=== PATIENT | female | born 1960 | race Two or more races ===

== ENCOUNTER 2021-08-16 13:38 | Inpatient (IN) | payer BC, OTHER ==
[~2021-08-16] VITALS: Ht 177.8 cm; Wt 125.6 kg
[2021-08-16 13:32] VITALS: BP 154/73
[~2021-08-16 13:38] MED LIST: ACETAMINOPHEN 650MG SUPP PR PRN; ACETAMINOPHEN 650MG/20.3ML UDC GT PRN; DOCUSATE SODIUM 100MG CAPSULE PO PRN; GUAIFENESIN 200MG/10ML SUGAR FREE UDC PO PRN; IPRATROPIUM/ALBUTEROL 0.5-3(2.5)MG/3ML NEB NEB PRN; MAGNESIUM/ALUMINUM HYDROXIDE/SIMETHICONE 30ML UDC PO PRN; ONDANSETRON HCL 4MG/2ML INJ IV PRN
[2021-08-16 15:13] VITALS: BP 148/70
[2021-08-16] MEDS ORDERED: NALOXONE HCL 0.4MG/ML VIAL IV PRN (15:30)
[2021-08-16 15:32] LABS: BASOPHILS % 0.2 % (0.0-2.0); HEMATOCRIT. 26.9 % (36.0-48.0); HEMOGLOBIN. 8.7 g/dL (12.0-16.0); LYMPHOCYTES % 7.1 % (20.0-50.0); MEAN CORPUSCULAR VOLUME 96.3 fL (81.0-99.0); MEAN PLATELET VOLUME 7.9 fl (7.4-10.4); MONOCYTES % 8.4 % (2.0-8.0); NEUTROPHILS % 83.3 % (40.0-76.0); PLATELET 356 x1000/uL (130-400); RED CELL DISTRIBUTION WIDTH 19.1 % (11.6-14.6)
[2021-08-16 15:43] LABS: CHLORIDE 104 mEq/L (98-107)
[2021-08-16 15:49] LABS: PHOSPHORUS 2.6 mg/dL (2.5-4.9)
[2021-08-16 15:50] LABS: LDL CHOLESTEROL 98 mg/dL (5-100)
[2021-08-16 15:51] LABS: HDL CHOLESTEROL 35 mg/dL (40-59)
[2021-08-16 15:53] LABS: CREATINE KINASE 13 IU/L (26-192)
[2021-08-16 16:00] VITALS: BP 106/64
[2021-08-16] MEDS: MEROPENEM 1,000 MG in SODIUM CHLORIDE 0.9% 100 ML IV SCH (16:06)
[2021-08-16 17:34] VITALS: BP 116/70
[2021-08-16 20:00] VITALS: BP 119/78
[2021-08-16] MEDS: IPRATROPIUM/ALBUTEROL 0.5-3(2.5)MG/3ML NEB HHN SCH ×2 (20:13→23:57)
[2021-08-16] MEDS: BLOOD SUGAR DIAGNOSTIC STRIP TEST SCH (20:48)
[2021-08-16] MEDS: AMLODIPINE 2.5MG TABLET PO SCH (20:48)
[2021-08-16 22:00] VITALS: BP 128/69
[2021-08-16 23:17] LABS: CLARITY URINE CLOUDY (CLEAR); COLOR URINE DARK YELLOW (YELLOW); KETONES URINE NEGATIVE (NEGATIVE); LEUKOCYTE ESTERASE URINE 1+ (NEGATIVE); NITRITE URINE NEGATIVE (NEGATIVE); OCCULT BLOOD URINE NEGATIVE (NEGATIVE); PH URINE 5.5 (4.5-8.0); PROTEIN URINE 1+ (NEGATIVE); SPECIFIC GRAVITY URINE 1.024 (1.005-1.030); UROBILINOGEN URINE 0.2 E.U./dL (0.2-1.0)
[2021-08-17] VITALS (12 sets, daily range): BP systolic 112–146; BP diastolic 56–88
[2021-08-17] MEDS: MEROPENEM 1,000 MG in SODIUM CHLORIDE 0.9% 100 ML IV SCH ×4 (00:39→23:30)
[2021-08-17] MEDS: IPRATROPIUM/ALBUTEROL 0.5-3(2.5)MG/3ML NEB HHN SCH ×4 (02:59→20:25)
[2021-08-17 08:25] LABS: BASOPHILS % 0.3 % (0.0-2.0); EOSINOPHILS % 1.3 % (0.0-5.0); HEMATOCRIT. 24.7 % (36.0-48.0); HEMOGLOBIN. 8.4 g/dL (12.0-16.0); LYMPHOCYTES % 7.7 % (20.0-50.0); MEAN CORPUSCULAR HEMOGLOBIN 32.9 pg (28.0-32.0); MEAN CORPUSCULAR VOLUME 96.7 fL (81.0-99.0); MEAN PLATELET VOLUME 8.1 fl (7.4-10.4); MONOCYTES % 9.3 % (2.0-8.0); NEUTROPHILS % 81.4 % (40.0-76.0); PLATELET 295 x1000/uL (130-400); RED BLOOD CELL COUNT 2.56 mill/uL (4.2-5.4); RED CELL DISTRIBUTION WIDTH 19.4 % (11.6-14.6)
[2021-08-17 08:27] LABS: CHLORIDE 107 mEq/L (98-107)
[2021-08-17] MEDS: AMLODIPINE 2.5MG TABLET PO SCH ×2 (08:54→20:56)
[2021-08-17] MEDS: BLOOD SUGAR DIAGNOSTIC STRIP TEST SCH ×2 (08:54→20:56)
[2021-08-17] MEDS ORDERED: LIDOCAINE HCL 1% 20ML VIAL (Pyxis) INJ ONE (09:11)
[2021-08-17] MEDS: LORAZEPAM 2MG/ML CPJ IV PRN (16:01)
[2021-08-17] MEDS ORDERED: IOHEXOL-300 100 ML BOTTLE ONE ×2 (17:00→20:39)
[2021-08-18] VITALS (12 sets, daily range): BP systolic 110–179; BP diastolic 61–77
[2021-08-18] MEDS: IPRATROPIUM/ALBUTEROL 0.5-3(2.5)MG/3ML NEB HHN SCH ×6 (00:31→20:44)
[2021-08-18] MEDS: CLONIDINE 0.1MG TABLET PO PRN ×2 (01:28→12:47)
[2021-08-18 06:33] LABS: BASOPHILS % 0.3 % (0.0-2.0); EOSINOPHILS % 1.6 % (0.0-5.0); HEMATOCRIT. 28.6 % (36.0-48.0); HEMOGLOBIN. 9.2 g/dL (12.0-16.0); MEAN CORPUSCULAR HEMOGLOBIN 31.4 pg (28.0-32.0); MEAN CORPUSCULAR VOLUME 97.4 fL (81.0-99.0); MEAN PLATELET VOLUME 8.2 fl (7.4-10.4); MONOCYTES % 12.7 % (2.0-8.0); NEUTROPHILS % 77.4 % (40.0-76.0); PLATELET 312 x1000/uL (130-400); RED BLOOD CELL COUNT 2.94 mill/uL (4.2-5.4); RED CELL DISTRIBUTION WIDTH 18.7 % (11.6-14.6)
[2021-08-18 06:37] LABS: CHLORIDE 109 mEq/L (98-107)
[2021-08-18 08:12] LABS: *CREATININE RANDOM URINE 72.7 mg/dL (Not Estab.); MICROALBUMIN RANDOM URINE 30.1 ug/mL (Not Estab.)
[2021-08-18] MEDS: MEROPENEM 1,000 MG in SODIUM CHLORIDE 0.9% 100 ML IV SCH ×3 (08:25→23:30)
[2021-08-18 08:34] LABS: BG BASE EXCESS 8.3 mmol/L (-2.0-2.0); BG CARBOXYHEMOGLOBIN 0.7 % (0.5-1.5); BG DEOXYHEMOGLOBIN 5.1 % (0.0-5.0); BG FRACTION INSPIRED OXYGEN 30; BG HCO3 ACT 32.2 mmol/L (22.0-26.0); BG METHEMOGLOBIN 0.4 % (0.0-1.5); BG OXYGEN SATURATION 94.8 % (92.0-98.5); BG OXYHEMOGLOBIN 93.8 % (94.0-97.0); BG PCO2 42.1 mmHg (35.0-45.0); BG PH 7.501 (7.350-7.450); BG PO2 76.2 mmHg (75.0-100.0); BG SAMPLE SITE RIGHT RADIAL; BG TOTAL HEMOGLOBIN 8.8 g/dL (12.0-18.0); BG VENT MODE VENT - AC
[2021-08-18] MEDS: BLOOD SUGAR DIAGNOSTIC STRIP TEST SCH ×2 (09:06→20:54)
[2021-08-18] MEDS: AMLODIPINE 2.5MG TABLET PO SCH ×2 (09:06→20:55)
[2021-08-18] MEDS: MORPHINE SULFATE 2 MG/ML CPJ (NOT FOR IM USE) IV PRN (10:33)
[2021-08-18] MEDS: CINACALCET HCL 30MG TABLET PO SCH (11:36)
[2021-08-18 12:49] LABS: BG BASE EXCESS 8.5 mmol/L (-2.0-2.0); BG CARBOXYHEMOGLOBIN 0.7 % (0.5-1.5); BG FRACTION INSPIRED OXYGEN 30; BG HCO3 ACT 32.6 mmol/L (22.0-26.0); BG METHEMOGLOBIN 0.4 % (0.0-1.5); BG OXYHEMOGLOBIN 95.9 % (94.0-97.0); BG PCO2 43.8 mmHg (35.0-45.0); BG PO2 92.1 mmHg (75.0-100.0); BG SAMPLE SITE RIGHT RADIAL; BG TOTAL HEMOGLOBIN 8.4 g/dL (12.0-18.0); BG VENT MODE VENT - AC
[2021-08-19] VITALS (13 sets, daily range): BP systolic 94–150; BP diastolic 52–91
[2021-08-19] MEDS: IPRATROPIUM/ALBUTEROL 0.5-3(2.5)MG/3ML NEB HHN SCH ×6 (00:14→20:37)
[2021-08-19 05:34] LABS: BASOPHILS % 0.4 % (0.0-2.0); EOSINOPHILS % 2.3 % (0.0-5.0); HEMATOCRIT. 25.4 % (36.0-48.0); HEMOGLOBIN. 8.1 g/dL (12.0-16.0); LYMPHOCYTES % 9.2 % (20.0-50.0); MEAN CORPUSCULAR HEMOGLOBIN 31.1 pg (28.0-32.0); MEAN CORPUSCULAR VOLUME 97.1 fL (81.0-99.0); MEAN PLATELET VOLUME 7.9 fl (7.4-10.4); MONOCYTES % 9.8 % (2.0-8.0); NEUTROPHILS % 78.3 % (40.0-76.0); PLATELET 313 x1000/uL (130-400); RED BLOOD CELL COUNT 2.62 mill/uL (4.2-5.4); RED CELL DISTRIBUTION WIDTH 18.5 % (11.6-14.6)
[2021-08-19 05:44] LABS: CHLORIDE 112 mEq/L (98-107)
[2021-08-19] MEDS: CINACALCET HCL 30MG TABLET PO SCH (08:36)
[2021-08-19] MEDS: AMLODIPINE 2.5MG TABLET PO SCH (08:36)
[2021-08-19] MEDS: MEROPENEM 1,000 MG in SODIUM CHLORIDE 0.9% 100 ML IV SCH ×3 (08:36→23:36)
[2021-08-19] MEDS: BLOOD SUGAR DIAGNOSTIC STRIP TEST SCH ×2 (09:00→20:38)
[2021-08-19] MEDS ORDERED: KCL 20MEQ/100ML PREMIX 100 ML IV SCH (09:00)
[2021-08-19] MEDS ORDERED: POTASSIUM CHLORIDE 20MEQ/PACKET PO SCH (09:30)
[2021-08-19 09:59] LABS: PARTIAL THROMBOPLASTIN TIME 21.9 sec (23.4-31.0); PROTHROMBIN TIME 11.1 sec (9.6-11.0)
[2021-08-19] MEDS ORDERED: LIDOCAINE HCL 1% 20ML VIAL (Pyxis) INJ ONE (10:49)
[2021-08-19] MEDS: MORPHINE SULFATE 2 MG/ML CPJ (NOT FOR IM USE) IV PRN (10:57)
[2021-08-19] MEDS: LORAZEPAM 2MG/ML CPJ IV PRN (14:40)
[2021-08-19] MEDS: METOPROLOL TARTRATE 25MG TABLET PO SCH ×2 (16:22→21:02)
[2021-08-20] VITALS (18 sets, daily range): BP systolic 117–169; BP diastolic 69–96
[2021-08-20] MEDS: IPRATROPIUM/ALBUTEROL 0.5-3(2.5)MG/3ML NEB HHN SCH ×6 (00:16→20:44)
[2021-08-20 06:10] LABS: CHLORIDE 111 mEq/L (98-107)
[2021-08-20 06:19] LABS: PHOSPHORUS 3.2 mg/dL (2.5-4.9)
[2021-08-20] MEDS: MEROPENEM 1,000 MG in SODIUM CHLORIDE 0.9% 100 ML IV SCH ×3 (08:07→23:42)
[2021-08-20] MEDS: CINACALCET HCL 30MG TABLET PO SCH (08:07)
[2021-08-20] MEDS: METOPROLOL TARTRATE 25MG TABLET PO SCH ×2 (08:07→20:52)
[2021-08-20] MEDS: BLOOD SUGAR DIAGNOSTIC STRIP TEST SCH ×2 (08:08→20:52)
[2021-08-20 08:33] LABS: BASOPHILS % 0.5 % (0.0-2.0); EOSINOPHILS % 3.2 % (0.0-5.0); HEMATOCRIT. 25.9 % (36.0-48.0); HEMOGLOBIN. 8.3 g/dL (12.0-16.0); LYMPHOCYTES % 9.5 % (20.0-50.0); MEAN CORPUSCULAR VOLUME 97.2 fL (81.0-99.0); MEAN PLATELET VOLUME 7.5 fl (7.4-10.4); MONOCYTES % 9.3 % (2.0-8.0); NEUTROPHILS % 77.5 % (40.0-76.0); PLATELET 309 x1000/uL (130-400); RED BLOOD CELL COUNT 2.67 mill/uL (4.2-5.4); RED CELL DISTRIBUTION WIDTH 18.5 % (11.6-14.6)
[2021-08-20] MEDS: RISPERIDONE 0.5MG TABLET PO SCH (10:21)
[2021-08-20] MEDS: CLONIDINE 0.1MG TABLET PO PRN (10:21)
[2021-08-20] MEDS: LINEZOLID 600MG TABLET GT SCH (17:07)
[2021-08-21] VITALS (13 sets, daily range): BP systolic 117–160; BP diastolic 53–97
[2021-08-21] MEDS: IPRATROPIUM/ALBUTEROL 0.5-3(2.5)MG/3ML NEB HHN SCH ×6 (00:34→21:30)
[2021-08-21] MEDS: LORAZEPAM 2MG/ML CPJ IV PRN ×2 (02:14→10:43)
[2021-08-21 05:56] LABS: BASOPHILS % 0.5 % (0.0-2.0); HEMATOCRIT. 26.1 % (36.0-48.0); HEMOGLOBIN. 8.5 g/dL (12.0-16.0); LYMPHOCYTES % 12.1 % (20.0-50.0); MEAN CORPUSCULAR HEMOGLOBIN 31.2 pg (28.0-32.0); MEAN CORPUSCULAR VOLUME 95.9 fL (81.0-99.0); MEAN PLATELET VOLUME 7.6 fl (7.4-10.4); NEUTROPHILS % 73.4 % (40.0-76.0); PLATELET 315 x1000/uL (130-400); RED BLOOD CELL COUNT 2.72 mill/uL (4.2-5.4); RED CELL DISTRIBUTION WIDTH 18.4 % (11.6-14.6)
[2021-08-21 06:08] LABS: CHLORIDE 110 mEq/L (98-107)
[2021-08-21] MEDS ORDERED: CINACALCET HCL 60MG TABLET PO SCH (08:00)
[2021-08-21] MEDS ORDERED: ZINC SULFATE 220 MG ( 50 ) CAPSULE PO SCH (09:00)
[2021-08-21] MEDS ORDERED: ASCORBIC ACID 500 MG TABLET PO SCH (09:00)
[2021-08-21] MEDS: BLOOD SUGAR DIAGNOSTIC STRIP TEST SCH ×2 (09:45→20:56)
[2021-08-21] MEDS: MEROPENEM 1,000 MG in SODIUM CHLORIDE 0.9% 100 ML IV SCH (09:49)
[2021-08-21] MEDS ORDERED: LORAZEPAM 2MG/ML CPJ ONE (10:35)
[2021-08-21] MEDS: RISPERIDONE 0.5MG TABLET PO SCH (10:56)
[2021-08-21] MEDS: LINEZOLID 600MG TABLET GT SCH (10:57)
[2021-08-21] MEDS: METOPROLOL TARTRATE 25MG TABLET PO SCH ×2 (10:58→20:57)
[2021-08-21] MEDS ORDERED: LORAZEPAM 2MG/ML CPJ IV PRN (12:15)
[2021-08-21] MEDS ORDERED: AMPICILLIN SOD/SULBACTAM NA 3 G in SODIUM CHLORIDE 0.9% 100 ML IV SCH (16:30)
[2021-08-21] MEDS ORDERED: DILTIAZEM HCL 5MG/ML 5ML VIAL IV NR (19:45)
== END 2021-08-21 23:46 | DRG 870 ==
LOC: 5EST 13:38
PROVIDERS: ADMIT Family Medicine Adult Medicine; ATTEND Family Medicine Adult Medicine
PROC: 5A1955Z Respiratory Ventilation, Greater than 96 Consecutive Hours (ICD-10-PCS; 2021-08-16)
PROC: 02HV33Z Insertion of Infusion Device into Superior Vena Cava, Percutaneous Approach (ICD-10-PCS; principal; 2021-08-17)
PROC: B548ZZA Ultrasonography of Superior Vena Cava, Guidance (ICD-10-PCS; 2021-08-17)
PROC: 0W9F30Z Drainage of Abdominal Wall with Drainage Device, Percutaneous Approach (ICD-10-PCS; 2021-08-19)
DX: A41.9 Sepsis, unspecified organism (principal); K65.1 Peritoneal abscess; G92.8 Other toxic encephalopathy; J96.20 Acute and chronic respiratory failure, unspecified whether with hypoxia or hypercapnia; E44.0 Moderate protein-calorie malnutrition; I50.22 Chronic systolic (congestive) heart failure; E87.3 Alkalosis; I13.0 Hypertensive heart and chronic kidney disease with heart failure and stage 1 through stage 4 chronic kidney disease, or unspecified chronic kidney disease; I42.9 Cardiomyopathy, unspecified; K61.1 Rectal abscess; Z99.11 Dependence on respirator [ventilator] status; Z16.12 Extended spectrum beta lactamase (ESBL) resistance; L02.211 Cutaneous abscess of abdominal wall; N17.9 Acute kidney failure, unspecified; E11.22 Type 2 diabetes mellitus with diabetic chronic kidney disease; E66.01 Morbid (severe) obesity due to excess calories; I48.0 Paroxysmal atrial fibrillation; D64.9 Anemia, unspecified; E83.52 Hypercalcemia; I27.81 Cor pulmonale (chronic); I49.5 Sick sinus syndrome; N18.9 Chronic kidney disease, unspecified; R13.10 Dysphagia, unspecified; B96.1 Klebsiella pneumoniae [K. pneumoniae] as the cause of diseases classified elsewhere; B96.20 Unspecified Escherichia coli [E. coli] as the cause of diseases classified elsewhere; U09.9 Post COVID-19 condition, unspecified; B95.2 Enterococcus as the cause of diseases classified elsewhere; N73.9 Female pelvic inflammatory disease, unspecified; Z20.822 Contact with and (suspected) exposure to COVID-19; S30.91XA Unspecified superficial injury of lower back and pelvis, initial encounter; S81.811A Laceration without foreign body, right lower leg, initial encounter; X58.XXXA Exposure to other specified factors, initial encounter; Y93.89 Activity, other specified; Y92.89 Other specified places as the place of occurrence of the external cause; Y99.8 Other external cause status; Z86.72 Personal history of thrombophlebitis; Z93.0 Tracheostomy status; Z93.1 Gastrostomy status; Z87.01 Personal history of pneumonia (recurrent); Z90.49 Acquired absence of other specified parts of digestive tract; Z68.39 Body mass index [BMI] 39.0-39.9, adult
CPT/HCPCS: 10030; 36415; 36600; 71045; 74177; 76937; 80048; 80053; 80061; 81003; 82043; 82330; 82375; 82550; 82570; 82805; 82962; 83036; 83605; 83735; 83880; 84100; 84134; 84145; 84443; 84484; 84550; 84560; 85025; 87070; 87075; 87077; 87186; 87426; 93005; 93306; 94002; 94003; 94640; A6261; C1725; C1729; C1760; J0295; J2060; J2185; J2270; J2405; J3480; J3490; J7050; Q9967

== ENCOUNTER 2021-09-10 12:52 | Inpatient (IN) | payer BC, OTHER ==
[~2021-09-10] VITALS: Ht 170.2 cm; Wt 119.5 kg
[2021-09-10 17:34] VITALS: BP 136/69
[2021-09-10 18:14] VITALS: BP 121/61
[2021-09-10] MEDS ORDERED: ACETAMINOPHEN 650MG/20.3ML UDC GT PRN (18:15)
[2021-09-10] MEDS ORDERED: ONDANSETRON HCL 4MG/2ML INJ IV PRN (18:15)
[2021-09-10] MEDS ORDERED: MAGNESIUM/ALUMINUM HYDROXIDE/SIMETHICONE 30ML UDC PO PRN (18:15)
[2021-09-10] MEDS ORDERED: DOCUSATE SODIUM 100MG CAPSULE PO PRN (18:15)
[2021-09-10] MEDS ORDERED: IPRATROPIUM/ALBUTEROL 0.5-3(2.5)MG/3ML NEB NEB PRN (18:15)
[2021-09-10] MEDS ORDERED: IPRATROPIUM/ALBUTEROL 0.5-3(2.5)MG/3ML NEB HHN PRN (18:15)
[2021-09-10] MEDS ORDERED: GUAIFENESIN 200MG/10ML SUGAR FREE UDC PO PRN (18:15)
[2021-09-10] MEDS ORDERED: CLONIDINE 0.1MG TABLET PO PRN (18:15)
[2021-09-10] MEDS ORDERED: LORAZEPAM 2MG/ML CPJ IV PRN (18:15)
[2021-09-10] MEDS ORDERED: DIPHENHYDRAMINE 50MG/ML VIAL IV PRN (18:15)
[2021-09-10] MEDS ORDERED: MORPHINE SULFATE 2 MG/ML CPJ (NOT FOR IM USE) IV PRN (18:15)
[2021-09-10 19:07] LABS: BG CARBOXYHEMOGLOBIN 0.6 % (0.5-1.5); BG DEOXYHEMOGLOBIN 5.8 % (0.0-5.0); BG FRACTION INSPIRED OXYGEN 28; BG HCO3 ACT 27.4 mmol/L (22.0-26.0); BG METHEMOGLOBIN 0.3 % (0.0-1.5); BG OXYGEN SATURATION 94.1 % (92.0-98.5); BG OXYHEMOGLOBIN 93.3 % (94.0-97.0); BG PCO2 41.2 mmHg (35.0-45.0); BG PO2 72.9 mmHg (75.0-100.0); BG SAMPLE SITE RIGHT RADIAL; BG TOTAL HEMOGLOBIN 10.1 g/dL (12.0-18.0); BG VENT MODE VENT - AC
[2021-09-10 20:00] VITALS: BP 114/72
[2021-09-10 21:53] LABS: HEMATOCRIT. 25.9 % (36.0-48.0); HEMOGLOBIN. 8.3 g/dL (12.0-16.0); MEAN CORPUSCULAR HEMOGLOBIN 32.2 pg (28.0-32.0); MEAN CORPUSCULAR VOLUME 99.9 fL (81.0-99.0); MEAN PLATELET VOLUME 8.1 fl (7.4-10.4); PLATELET 284 x1000/uL (130-400); RED BLOOD CELL COUNT 2.59 mill/uL (4.2-5.4); RED CELL DISTRIBUTION WIDTH 18.2 % (11.6-14.6)
[2021-09-10 22:00] VITALS: BP 131/74
[2021-09-10] MEDS: METOPROLOL TARTRATE 25MG TABLET PO SCH (22:00)
[2021-09-10] MEDS: AMLODIPINE 2.5MG TABLET PO SCH (22:00)
[2021-09-10] MEDS: RISPERIDONE 0.5MG TABLET PO SCH (22:00)
[2021-09-10 22:13] LABS: CHLORIDE 105 mEq/L (98-107)
[2021-09-10 22:22] LABS: CREATINE KINASE 17 IU/L (26-192)
[2021-09-10 23:02] LABS: PLATELET ESTIMATE NORMAL
[2021-09-10 23:15] LABS: CLARITY URINE CLOUDY (CLEAR); COLOR URINE YELLOW (YELLOW); KETONES URINE NEGATIVE (NEGATIVE); LEUKOCYTE ESTERASE URINE 2+ (NEGATIVE); NITRITE URINE NEGATIVE (NEGATIVE); OCCULT BLOOD URINE 1+ (NEGATIVE); PROTEIN URINE TRACE (NEGATIVE); SPECIFIC GRAVITY URINE 1.014 (1.005-1.030); UROBILINOGEN URINE 0.2 E.U./dL (0.2-1.0)
[2021-09-11] VITALS (13 sets, daily range): BP systolic 111–132; BP diastolic 38–75
[2021-09-11 07:29] LABS: CHLORIDE 106 mEq/L (98-107)
[2021-09-11] MEDS: IPRATROPIUM/ALBUTEROL 0.5-3(2.5)MG/3ML NEB HHN SCH ×3 (08:11→20:45)
[2021-09-11] MEDS: AMLODIPINE 2.5MG TABLET PO SCH ×2 (09:41→20:54)
[2021-09-11] MEDS: CINACALCET HCL 60MG TABLET PO SCH (09:41)
[2021-09-11] MEDS: METOPROLOL TARTRATE 25MG TABLET PO SCH (09:41)
[2021-09-11] MEDS: RISPERIDONE 0.5MG TABLET PO SCH (09:42)
[2021-09-11] MEDS ORDERED: IOHEXOL-300 100 ML BOTTLE ONE (11:22)
[2021-09-11 15:08] LABS: BASOPHILS % 0.3 % (0.0-2.0); EOSINOPHILS % 1.5 % (0.0-5.0); HEMATOCRIT. 25.8 % (36.0-48.0); HEMOGLOBIN. 8.6 g/dL (12.0-16.0); LYMPHOCYTES % 7.1 % (20.0-50.0); MEAN CORPUSCULAR HEMOGLOBIN 32.1 pg (28.0-32.0); MEAN CORPUSCULAR VOLUME 96.9 fL (81.0-99.0); MEAN PLATELET VOLUME 7.7 fl (7.4-10.4); MONOCYTES % 8.8 % (2.0-8.0); NEUTROPHILS % 82.3 % (40.0-76.0); PLATELET 275 x1000/uL (130-400); RED BLOOD CELL COUNT 2.67 mill/uL (4.2-5.4); RED CELL DISTRIBUTION WIDTH 18.6 % (11.6-14.6)
[2021-09-11 15:18] LABS: PARTIAL THROMBOPLASTIN TIME 23.2 sec (23.4-31.0); PROTHROMBIN TIME 10.9 sec (9.6-11.0)
[2021-09-11] MEDS: AMPICILLIN SOD/SULBACTAM NA 3 G in SODIUM CHLORIDE 0.9% 100 ML IV SCH ×2 (18:23→23:59)
[2021-09-11] MEDS: FAMOTIDINE 20MG TABLET PO SCH (20:54)
[2021-09-12] VITALS (14 sets, daily range): BP systolic 101–133; BP diastolic 41–69
[2021-09-12] MEDS: IPRATROPIUM/ALBUTEROL 0.5-3(2.5)MG/3ML NEB HHN SCH ×4 (02:11→20:29)
[2021-09-12] MEDS: AMPICILLIN SOD/SULBACTAM NA 3 G in SODIUM CHLORIDE 0.9% 100 ML IV SCH ×3 (06:30→17:15)
[2021-09-12 09:10] LABS: HEMATOCRIT. 26.7 % (36.0-48.0); MEAN CORPUSCULAR HEMOGLOBIN 33.2 pg (28.0-32.0); MEAN CORPUSCULAR VOLUME 98.9 fL (81.0-99.0); MEAN PLATELET VOLUME 8.3 fl (7.4-10.4); PLATELET 307 x1000/uL (130-400); RED CELL DISTRIBUTION WIDTH 18.6 % (11.6-14.6)
[2021-09-12 09:27] LABS: PROTHROMBIN TIME 10.7 sec (9.6-11.0)
[2021-09-12 09:40] LABS: CHLORIDE 106 mEq/L (98-107)
[2021-09-12] MEDS ORDERED: SODIUM BICARBONATE 4% (2.4MEQ) 5ML VIAL IV ONE ×2 (09:56→13:11)
[2021-09-12] MEDS ORDERED: LIDOCAINE HCL/PF 1% 10 MG/ML 5ML VIAL ONE ×2 (09:56→13:10)
[2021-09-12] MEDS: CINACALCET HCL 60MG TABLET PO SCH (14:16)
[2021-09-12] MEDS: ACETAMINOPHEN 650MG/20.3ML UDC GT PRN (14:16)
[2021-09-12] MEDS: AMLODIPINE 2.5MG TABLET PO SCH ×2 (14:17→21:01)
[2021-09-12] MEDS: RISPERIDONE 0.5MG TABLET PO SCH (14:17)
[2021-09-12] MEDS: PANTOPRAZOLE SODIUM 40 MG/VIAL IV SCH (21:01)
[2021-09-12] MEDS: FAMOTIDINE 20MG TABLET PO SCH (21:01)
[2021-09-12 22:30] LABS: PLATELET ESTIMATE NORMAL
[2021-09-13] VITALS (10 sets, daily range): BP systolic 112–130; BP diastolic 53–70
[2021-09-13] MEDS: AMPICILLIN SOD/SULBACTAM NA 3 G in SODIUM CHLORIDE 0.9% 100 ML IV SCH ×5 (00:03→23:29)
[2021-09-13] MEDS: IPRATROPIUM/ALBUTEROL 0.5-3(2.5)MG/3ML NEB HHN SCH ×4 (01:30→21:44)
[2021-09-13 03:47] LABS: HEMATOCRIT. 24.2 % (36.0-48.0); HEMOGLOBIN. 8.2 g/dL (12.0-16.0); MEAN CORPUSCULAR VOLUME 97.1 fL (81.0-99.0); MEAN PLATELET VOLUME 7.8 fl (7.4-10.4); PLATELET 271 x1000/uL (130-400); RED BLOOD CELL COUNT 2.49 mill/uL (4.2-5.4); RED CELL DISTRIBUTION WIDTH 18.2 % (11.6-14.6)
[2021-09-13 03:53] LABS: PROTHROMBIN TIME 11.2 sec (9.6-11.0)
[2021-09-13 03:57] LABS: CHLORIDE 107 mEq/L (98-107)
[2021-09-13] MEDS: CINACALCET HCL 60MG TABLET PO SCH (08:00)
[2021-09-13] MEDS: RISPERIDONE 0.5MG TABLET PO SCH (08:17)
[2021-09-13] MEDS: AMLODIPINE 2.5MG TABLET PO SCH ×2 (08:17→20:49)
[2021-09-13] MEDS ORDERED: POTASSIUM CHLORIDE INJ 40 MEQ in DEXT 5% WATER 250 ML IV ONE (08:45)
[2021-09-13] MEDS ORDERED: FENTANYL CITRATE/PF 50MCG/ML 2ML VIAL ONE (09:10)
[2021-09-13] MEDS: PANTOPRAZOLE SODIUM 40 MG/VIAL IV SCH ×2 (09:20→20:48)
[2021-09-13] MEDS ORDERED: LIDOCAINE HCL 1% 50ML VIAL (10MG/ML) ONE (10:10)
[2021-09-13] MEDS ORDERED: SODIUM BICARBONATE 4% (2.4MEQ) 5ML VIAL IV ONE (10:11)
[2021-09-13] MEDS: KCL 20MEQ/100ML PREMIX 100 ML IV SCH ×2 (12:14→14:38)
[2021-09-13] MEDS ORDERED: DEXTROSE 50% WATER 50ML SYRINGE IV PRN (17:45)
[2021-09-13] MEDS: BLOOD SUGAR DIAGNOSTIC STRIP TEST SCH ×2 (18:58→23:31)
[2021-09-13] MEDS: FAMOTIDINE 20MG TABLET PO SCH (20:49)
[2021-09-13 22:06] LABS: PLATELET ESTIMATE NORMAL
[2021-09-14] VITALS: BP 119/61
[2021-09-14] MEDS: IPRATROPIUM/ALBUTEROL 0.5-3(2.5)MG/3ML NEB HHN SCH ×4 (00:49→20:21)
[2021-09-14 02:00] VITALS: BP 114/57
[2021-09-14] MEDS: AMPICILLIN SOD/SULBACTAM NA 3 G in SODIUM CHLORIDE 0.9% 100 ML IV SCH ×3 (05:35→17:09)
[2021-09-14] MEDS: BLOOD SUGAR DIAGNOSTIC STRIP TEST SCH ×3 (05:35→17:09)
[2021-09-14] MEDS: RISPERIDONE 0.5MG TABLET PO SCH (08:33)
[2021-09-14] MEDS: AMLODIPINE 2.5MG TABLET PO SCH ×2 (08:33→20:50)
[2021-09-14] MEDS: CINACALCET HCL 60MG TABLET PO SCH (08:33)
[2021-09-14] MEDS: PANTOPRAZOLE SODIUM 40 MG/VIAL IV SCH ×2 (08:33→20:48)
[2021-09-14 10:13] LABS: BASOPHILS % 0.4 % (0.0-2.0); EOSINOPHILS % 3.9 % (0.0-5.0); HEMATOCRIT. 24.5 % (36.0-48.0); HEMOGLOBIN. 8.2 g/dL (12.0-16.0); LYMPHOCYTES % 10.5 % (20.0-50.0); MEAN CORPUSCULAR HEMOGLOBIN 32.9 pg (28.0-32.0); MEAN CORPUSCULAR VOLUME 98.2 fL (81.0-99.0); MEAN PLATELET VOLUME 8.1 fl (7.4-10.4); MONOCYTES % 10.5 % (2.0-8.0); NEUTROPHILS % 74.7 % (40.0-76.0); PLATELET 291 x1000/uL (130-400); RED BLOOD CELL COUNT 2.49 mill/uL (4.2-5.4); RED CELL DISTRIBUTION WIDTH 17.5 % (11.6-14.6)
[2021-09-14 10:25] LABS: CHLORIDE 109 mEq/L (98-107)
[2021-09-14 20:00] VITALS: BP 121/66
[2021-09-14] MEDS: FAMOTIDINE 20MG TABLET PO SCH (20:48)
[2021-09-14 22:00] VITALS: BP 108/62
[2021-09-15] VITALS (10 sets, daily range): BP systolic 68–122; BP diastolic 44–77
[2021-09-15] MEDS: BLOOD SUGAR DIAGNOSTIC STRIP TEST SCH ×4 (00:18→17:37)
[2021-09-15] MEDS: AMPICILLIN SOD/SULBACTAM NA 3 G in SODIUM CHLORIDE 0.9% 100 ML IV SCH ×5 (00:18→23:50)
[2021-09-15] MEDS: IPRATROPIUM/ALBUTEROL 0.5-3(2.5)MG/3ML NEB HHN SCH ×4 (02:25→20:21)
[2021-09-15 06:48] LABS: BASOPHILS % 0.5 % (0.0-2.0); EOSINOPHILS % 3.4 % (0.0-5.0); HEMATOCRIT. 25.3 % (36.0-48.0); HEMOGLOBIN. 8.5 g/dL (12.0-16.0); LYMPHOCYTES % 8.9 % (20.0-50.0); MEAN CORPUSCULAR HEMOGLOBIN 32.5 pg (28.0-32.0); MEAN CORPUSCULAR VOLUME 97.2 fL (81.0-99.0); MEAN PLATELET VOLUME 7.9 fl (7.4-10.4); MONOCYTES % 12.5 % (2.0-8.0); NEUTROPHILS % 74.7 % (40.0-76.0); PLATELET 272 x1000/uL (130-400); RED CELL DISTRIBUTION WIDTH 17.4 % (11.6-14.6)
[2021-09-15 07:13] LABS: CHLORIDE 111 mEq/L (98-107)
[2021-09-15] MEDS: PANTOPRAZOLE SODIUM 40 MG/VIAL IV SCH ×2 (08:46→21:02)
[2021-09-15] MEDS: AMLODIPINE 2.5MG TABLET PO SCH ×2 (08:46→21:00)
[2021-09-15] MEDS: RISPERIDONE 0.5MG TABLET PO SCH (08:46)
[2021-09-15] MEDS: CINACALCET HCL 60MG TABLET PO SCH (08:46)
[2021-09-15] MEDS ORDERED: POTASSIUM CHLORIDE 20MEQ/PACKET PO NR (09:15)
[2021-09-15] MEDS: ACETAMINOPHEN 650MG/20.3ML UDC GT PRN (21:01)
[2021-09-16] VITALS (13 sets, daily range): BP systolic 91–149; BP diastolic 45–79
[2021-09-16] MEDS: IPRATROPIUM/ALBUTEROL 0.5-3(2.5)MG/3ML NEB HHN SCH ×4 (01:46→20:28)
[2021-09-16 03:28] LABS: MEAN CORPUSCULAR VOLUME 102.3 fL (81.0-99.0); PLATELET 303 x1000/uL (130-400); RED BLOOD CELL COUNT 2.89 mill/uL (4.2-5.4); RED CELL DISTRIBUTION WIDTH 17.7 % (11.6-14.6)
[2021-09-16 03:43] LABS: CHLORIDE 109 mEq/L (98-107)
[2021-09-16 03:53] LABS: PROTHROMBIN TIME 10.5 sec (9.6-11.0)
[2021-09-16] MEDS: AMPICILLIN SOD/SULBACTAM NA 3 G in SODIUM CHLORIDE 0.9% 100 ML IV SCH ×2 (05:41→12:30)
[2021-09-16] MEDS: BLOOD SUGAR DIAGNOSTIC STRIP TEST SCH ×3 (06:00→12:31)
[2021-09-16 06:45] LABS: HEMATOCRIT. 29.6 % (36.0-48.0); HEMOGLOBIN. 9.5 g/dL (12.0-16.0)
[2021-09-16 06:58] LABS: BASOPHILS % 0.4 % (0.0-2.0); EOSINOPHILS % 2.6 % (0.0-5.0); LYMPHOCYTES % 9.8 % (20.0-50.0); MEAN PLATELET VOLUME 7.7 fl (7.4-10.4); MONOCYTES % 9.4 % (2.0-8.0); NEUTROPHILS % 77.8 % (40.0-76.0)
[2021-09-16] MEDS: CINACALCET HCL 60MG TABLET PO SCH (08:00)
[2021-09-16] MEDS: AMLODIPINE 2.5MG TABLET PO SCH ×2 (09:00→21:06)
[2021-09-16] MEDS: RISPERIDONE 0.5MG TABLET PO SCH (09:00)
[2021-09-16] MEDS: PANTOPRAZOLE SODIUM 40 MG/VIAL IV SCH ×2 (10:05→21:06)
[2021-09-16] MEDS ORDERED: ROCURONIUM BROMIDE 10MG/ML VIAL 5ML IV ONE (13:58)
[2021-09-16] MEDS ORDERED: MIDAZOLAM HCL 5 MG/5 ML VIAL ONE (14:00)
[2021-09-16] MEDS ORDERED: PROPOFOL 200MG/20ML VIAL IV ONE (15:16)
[2021-09-17] VITALS (11 sets, daily range): BP systolic 109–146; BP diastolic 55–80
[2021-09-17] MEDS: IPRATROPIUM/ALBUTEROL 0.5-3(2.5)MG/3ML NEB HHN SCH ×4 (00:19→21:09)
[2021-09-17] MEDS: METOCLOPRAMIDE HCL 10MG/2ML VIAL IV SCH ×4 (00:30→18:56)
[2021-09-17] MEDS: AMPICILLIN SOD/SULBACTAM NA 3 G in SODIUM CHLORIDE 0.9% 100 ML IV SCH ×4 (00:30→18:56)
[2021-09-17] MEDS: BLOOD SUGAR DIAGNOSTIC STRIP TEST SCH ×4 (00:30→18:39)
[2021-09-17 06:27] LABS: BASOPHILS % 0.3 % (0.0-2.0); HEMATOCRIT. 24.4 % (36.0-48.0); HEMOGLOBIN. 8.2 g/dL (12.0-16.0); LYMPHOCYTES % 7.2 % (20.0-50.0); MEAN CORPUSCULAR HEMOGLOBIN 32.9 pg (28.0-32.0); MEAN CORPUSCULAR VOLUME 98.4 fL (81.0-99.0); MEAN PLATELET VOLUME 7.7 fl (7.4-10.4); MONOCYTES % 9.9 % (2.0-8.0); NEUTROPHILS % 79.6 % (40.0-76.0); PLATELET 288 x1000/uL (130-400); RED BLOOD CELL COUNT 2.48 mill/uL (4.2-5.4); RED CELL DISTRIBUTION WIDTH 17.1 % (11.6-14.6)
[2021-09-17 06:36] LABS: CHLORIDE 110 mEq/L (98-107)
[2021-09-17] MEDS: PANTOPRAZOLE SODIUM 40 MG/VIAL IV SCH ×2 (09:00→20:53)
[2021-09-17] MEDS: ACETAMINOPHEN 650MG/20.3ML UDC GT PRN (10:32)
[2021-09-17] MEDS: AMLODIPINE 2.5MG TABLET PO SCH ×2 (10:33→20:55)
[2021-09-17] MEDS: CINACALCET HCL 60MG TABLET PO SCH (10:34)
[2021-09-17] MEDS: RISPERIDONE 0.5MG TABLET PO SCH (10:34)
[2021-09-17] MEDS ORDERED: POTASSIUM CHLORIDE INJ 40 MEQ in DEXT 5% WATER 500 ML IV NR (11:00)
[2021-09-17] MEDS ORDERED: PANT40VI IV (18:54)
[2021-09-17] MEDS ORDERED: [UNRECOGNIZED DRUG - CODE] IV (18:54)
[2021-09-17] MEDS ORDERED: METO5VIA3 IV (18:54)
[2021-09-17] MEDS ORDERED: CINA60 PO (18:54)
[2021-09-17] MEDS ORDERED: AMLO2.5T45 PO (18:54)
[2021-09-18] VITALS (7 sets, daily range): BP systolic 105–138; BP diastolic 56–84
[2021-09-18] MEDS: BLOOD SUGAR DIAGNOSTIC STRIP TEST SCH ×2 (00:01→05:39)
[2021-09-18] MEDS: METOCLOPRAMIDE HCL 10MG/2ML VIAL IV SCH ×2 (00:01→05:39)
[2021-09-18] MEDS: IPRATROPIUM/ALBUTEROL 0.5-3(2.5)MG/3ML NEB HHN SCH ×2 (01:25→08:35)
[2021-09-18] MEDS: AMPICILLIN SOD/SULBACTAM NA 3 G in SODIUM CHLORIDE 0.9% 100 ML IV SCH ×3 (05:38)
[2021-09-18 06:31] LABS: HEMATOCRIT. 26.7 % (36.0-48.0); HEMOGLOBIN. 8.7 g/dL (12.0-16.0); MEAN CORPUSCULAR HEMOGLOBIN 32.8 pg (28.0-32.0); MEAN CORPUSCULAR VOLUME 100.7 fL (81.0-99.0); MEAN PLATELET VOLUME 7.8 fl (7.4-10.4); PLATELET 294 x1000/uL (130-400); RED BLOOD CELL COUNT 2.65 mill/uL (4.2-5.4); RED CELL DISTRIBUTION WIDTH 17.5 % (11.6-14.6)
[2021-09-18 06:37] LABS: CHLORIDE 113 mEq/L (98-107)
[2021-09-18] MEDS: RISPERIDONE 0.5MG TABLET PO SCH (08:37)
[2021-09-18] MEDS: CINACALCET HCL 60MG TABLET PO SCH (08:37)
[2021-09-18] MEDS: PANTOPRAZOLE SODIUM 40 MG/VIAL IV SCH (08:38)
[2021-09-18] MEDS: AMLODIPINE 2.5MG TABLET PO SCH (08:38)
[2021-09-18] MEDS ORDERED: POTASSIUM CHLORIDE INJ 40 MEQ in DEXT 5% WATER 250 ML IV NR (11:00)
[2021-09-18 14:30] LABS: PLATELET ESTIMATE NORMAL
== END 2021-09-18 10:50 | DRG 870 ==
LOC: 5EST 17:12
PROVIDERS: ADMIT Family Medicine Adult Medicine; ATTEND Family Medicine Adult Medicine
PROC: 5A1955Z Respiratory Ventilation, Greater than 96 Consecutive Hours (ICD-10-PCS; principal; 2021-09-10)
PROC: 0W9F30Z Drainage of Abdominal Wall with Drainage Device, Percutaneous Approach (ICD-10-PCS; 2021-09-13)
PROC: 0DH63UZ Insertion of Feeding Device into Stomach, Percutaneous Approach (ICD-10-PCS; 2021-09-16)
PROC: 0DB78ZX Excision of Stomach, Pylorus, Via Natural or Artificial Opening Endoscopic, Diagnostic (ICD-10-PCS; 2021-09-16)
DX: A41.50 Gram-negative sepsis, unspecified (principal); E43 Unspecified severe protein-calorie malnutrition; G92.8 Other toxic encephalopathy; J96.20 Acute and chronic respiratory failure, unspecified whether with hypoxia or hypercapnia; K94.23 Gastrostomy malfunction; L02.211 Cutaneous abscess of abdominal wall; I13.0 Hypertensive heart and chronic kidney disease with heart failure and stage 1 through stage 4 chronic kidney disease, or unspecified chronic kidney disease; I42.9 Cardiomyopathy, unspecified; Z99.11 Dependence on respirator [ventilator] status; Z68.41 Body mass index [BMI] 40.0-44.9, adult; N18.9 Chronic kidney disease, unspecified; E83.52 Hypercalcemia; D53.9 Nutritional anemia, unspecified; I27.81 Cor pulmonale (chronic); I48.0 Paroxysmal atrial fibrillation; L89.156 Pressure-induced deep tissue damage of sacral region; L89.216 Pressure-induced deep tissue damage of right hip; I49.5 Sick sinus syndrome; E66.01 Morbid (severe) obesity due to excess calories; F41.9 Anxiety disorder, unspecified; K21.9 Gastro-esophageal reflux disease without esophagitis; G47.33 Obstructive sleep apnea (adult) (pediatric); J44.9 Chronic obstructive pulmonary disease, unspecified; I50.810 Right heart failure, unspecified; Z20.822 Contact with and (suspected) exposure to COVID-19; R13.12 Dysphagia, oropharyngeal phase; E87.6 Hypokalemia; Z86.16 Personal history of COVID-19; Z87.01 Personal history of pneumonia (recurrent); Z90.49 Acquired absence of other specified parts of digestive tract; Z90.710 Acquired absence of both cervix and uterus; Z86.39 Personal history of other endocrine, nutritional and metabolic disease; Z86.79 Personal history of other diseases of the circulatory system; Z93.0 Tracheostomy status
CPT/HCPCS: 10030; 36415; 36600; 71045; 74177; 77012; 80048; 80053; 81003; 82040; 82375; 82550; 82805; 82962; 83735; 84134; 84443; 85025; 87070; 87077; 87186; 87426; 88305; 88312; 88313; 93005; 94003; 94640; C1725; C1729; C1769; C1887; C9113; J0295; J1200; J2060; J2250; J2270; J2405; J2704; J2765; J3010; J3480; J3490; J7050; J7060; L8514; Q9967